=== PATIENT | male | born 1990 | race Caucasian/White ===

== ENCOUNTER 2018-04-15 10:01 | Emergency (ER) | payer MEDICAID ==
[~2018-04-15] VITALS: Ht 182.9 cm; Wt 77.6 kg
[2018-04-15 11:22] VITALS: BP 131/74
== END 2018-04-15 11:22 | disposition home or self-care (01) ==
LOC: ED 10:01
DX: L03.317 Cellulitis of buttock (principal)
CPT/HCPCS: J0690

== ENCOUNTER 2018-04-16 18:35 | Emergency (ER) | payer MEDICAID ==
[~2018-04-16] VITALS: Ht 175.3 cm; Wt 77.1 kg
[2018-04-16 18:52] VITALS: Ht 175.3 cm; Wt 77.1 kg
[2018-04-16 19:41] VITALS: BP 108/71
== END 2018-04-16 19:41 | disposition home or self-care (01) ==
LOC: ED 18:35
DX: L02.31 Cutaneous abscess of buttock (principal)

== ENCOUNTER 2018-11-28 15:25 | Emergency (ER) | payer MEDICAID ==
[~2018-11-28] VITALS: Ht 175.3 cm; Wt 88.0 kg
[2018-11-28 15:27] VITALS: Ht 175.3 cm; Wt 88.0 kg
[2018-11-28 16:50] LABS: BASOPHIL % 0.6 % (0-2); PLATELET COUNT 233 x10^3mcL (130-400); RED CELL DISTRIBUTION WIDTH 12.8 % (11.5-14.5)
[2018-11-28 16:58] LABS: CALCIUM 8.9 mg/dL (8.5-10.1); CARBON DIOXIDE 28.1 mmol/L (21-32); CHLORIDE SERUM 102 mmol/L (98-107); CREATININE SERUM 0.9 mg/dL (0.7-1.3); GFR1 > 60 mL/min; GLUCOSE SERUM 78 mg/dL (74-106); POTASSIUM SERUM 3.7 mmol/L (3.5-5.1); SODIUM SERUM 140 mmol/L (136-145)
[2018-11-28 17:03] LABS: ALBUMIN 4.3 g/dL (3.4-5.0); ALKALINE PHOSPHATASE 107 U/L (46-116); ALT/SGPT 31 U/L (16-63); AST/SGOT 18 U/L (15-37); BILIRUBIN TOTAL 0.8 mg/dL (0.20-1.00); LIPASE 280 IU/L (73-393); TOTAL PROTEIN, SERUM 7.8 g/dL (6.4-8.2)
[2018-11-28 18:13] VITALS: BP 138/75
== END 2018-11-28 18:12 | disposition home or self-care (01) ==
LOC: ED 15:25
PROVIDERS: Emergency Medicine
DX: K57.30 Diverticulosis of large intestine without perforation or abscess without bleeding (principal)
CPT/HCPCS: J2270; J2405; J7030